=== PATIENT | female | born 1985 | race Caucasian/White ===

== ENCOUNTER 2021-06-26 16:28 | Emergency (ER) | payer MEDICAID, SELFPAY | END 2021-06-26 20:09 | disposition left against medical advice (07) | PROVIDERS: Emergency Provider Emergency Medicine | DX: S69.90XA Unspecified injury of unspecified wrist, hand and finger(s), initial encounter (principal); X58.XXXA Exposure to other specified factors, initial encounter; Y93.9 Activity, unspecified; Y92.9 Unspecified place or not applicable; Y99.9 Unspecified external cause status ==